=== PATIENT | male | born 1955 | race Caucasian/White ===

== ENCOUNTER → 2016-08-27 | Outpatient (CLI) | payer BC ==
[~2016-08-27] MED LIST: ASCO500T16 PO; CHOL1000 PO; GLUC250C5 PO
--- NOTE | 2016-08-27 15:21 | ECHOCARDIOGRAM REPORT ---
*NOTICE TO RECEIVING [employer] This information is strictly Confidential and protected under [place] law. [place] law prohibits you from making any further disclosure of this information unless further disclosure is expressly permitted by the written consent of the person to whom it pertains or is authorized by law. A general authorization for the release of medical or other information is not sufficient for this purpose. Hospital accepts no responsibility if the information is made available to any other person, INCLUDING THE PATIENT. Interpretation Summary * Name: MARAL TOWNSEND Study Date: 08/27/2016 01:02 PM BP: 127/70 mmHg * Patient Location: [facility] HR: 63 * : 1955 (M/d/yyyy) Gender: Male Height: 69 in * Age: 61 yrs Ethnicity: CA Weight: 175 lb * Ordering Physician: Lucy Diaz * Referring Physician: Lucy Diaz * Performed By: Agustin Suresh RCS * * Reason For Study: Atrial Fibrillation * BSA: 2.0 m2 * -- Conclusions -- * Left ventricular systolic function is normal. * Diastolic dysfunction, Grade II, consistent with elevated left atrial pressure. * The right atrium is mild to moderately dilated. * Right ventricular systolic pressure is normal. Procedure Details * Left Ventricle The left ventricle is normal in size. There is normal left ventricular wall thickness. The basal septum is thickened and angulated consistent with sigmoid septum. Ejection Fraction = 60-65%. Left ventricular systolic function is normal. Diastolic dysfunction, Grade II, consistent with elevated left atrial pressure. * Right Ventricle The right ventricular cavity size is normal (basal dimension <4.2 cm in right ventricular apical 4-chamber view). The right ventricular systolic function is normal. * Atria The left atrial size is normal. The right atrium is mild to moderately dilated. * Mitral Valve The mitral valve leaflets appear thickened, but open well. Significant mitral regurgitation is absent. * Tricuspid Valve The tricuspid valve anatomy is normal. There is trace tricuspid regurgitation. Right ventricular systolic pressure is normal. * Aortic Valve The aortic valve is trileaflet. No hemodynamically significant valvular aortic stenosis. There is no significant aortic regurgitation. * Great Vessels The aortic root is normal size. * Pericardium/Pleural There is no pericardial effusion. * * MMode 2D Measurements and Calculations * RVDd 4.0 cm * IVSd 1.1 cm * * LVIDd 5.2 cm * LVIDs 2.7 cm * LVPWd 1.1 cm * * IVS/LVPW 1.0 * FS 47.7 % * EDV(Teich) 129.5 ml * ESV(Teich) 27.5 ml * EF(Teich) 78.8 % * * EDV(cubed) 140.6 ml * ESV(cubed) 20.1 ml * EF(cubed) 85.7 % * * LV mass(C)d 220.8 grams * LV mass(C)dI 113.1 grams/m\S\2 * * SV(Teich) 102.0 ml * SI(Teich) 52.3 ml/m\S\2 * SV(cubed) 120.5 ml * SI(cubed) 61.7 ml/m\S\2 * * Ao root diam 2.8 cm * Ao root area 6.1 cm\S\2 * * LVOT diam 2.1 cm * LVOT area 3.5 cm\S\2 * * LVAd ap4 29.7 cm\S\2 * LVLd ap4 8.7 cm * EDV(MOD-sp4) 84.2 ml * LVAs ap4 15.8 cm\S\2 * LVLs ap4 7.3 cm * ESV(MOD-sp4) 29.2 ml * EF(MOD-sp4) 65.3 % * * LVAd ap2 34.8 cm\S\2 * LVLd ap2 9.4 cm * EDV(MOD-sp2) 111.0 ml * LVAs ap2 17.6 cm\S\2 * LVLs ap2 7.2 cm * ESV(MOD-sp2) 38.0 ml * EF(MOD-sp2) 65.8 % * * SV(MOD-sp4) 55.0 ml * SI(MOD-sp4) 28.2 ml/m\S\2 * * SV(MOD-sp2) 73.0 ml * SI(MOD-sp2) 37.4 ml/m\S\2 * * * Doppler Measurements and Calculations * MV E max rodolfo 68.9 cm/sec * MV A max rodolfo 59.7 cm/sec * * MV E/A 1.2 * * MV dec time 0.25 sec * * Ao V2 max 160.2 cm/sec * Ao max PG 10.3 mmHg * Ao max PG (full) 4.9 mmHg * LORENA(V,A) 2.5 cm\S\2 * LORENA(V,D) 2.5 cm\S\2 * * LV V1 max PG 5.4 mmHg * * LV V1 max 116.0 cm/sec * * TR max rodolfo 226.7 cm/sec * * *
== END | disposition home or self-care (01) ==
LOC: C.CPL 12:49
PROVIDERS: ATTEND Nurse Practitioner
DX: I48.91 Unspecified atrial fibrillation (principal)